=== PATIENT | female | born 1980 | race Hispanic/Latino ===

== ENCOUNTER 2018-03-18 12:40 | Outpatient (CLI) | payer OTHER | END 2018-03-18 12:41 | disposition home or self-care (01) | LOC: RAD 12:40 ==

== ENCOUNTER 2018-04-09 13:48 | Outpatient (CLI) | payer OTHER | END 2018-04-09 13:49 | disposition home or self-care (01) | LOC: LAB 13:48 ==

== ENCOUNTER 2018-05-09 04:06 | Emergency (ER) | payer OTHER ==
[2018-05-09 04:14] VITALS: BMI 33.2
[2018-05-09 04:38] VITALS: RESP 18; O2SAT 96
[2018-05-09] MEDS ORDERED: Sodium Chloride 0.9% 1,000 ML IV SCH (04:45)
--- NOTE | 2018-05-09 04:53 | ED PDOC ---
Arrival/HPI - General Chief Complaint: Flu-like Symptoms Time Seen by Provider: 05/09/18 04:19 Historian: Patient - History of Present Illness Narrative History of Present Illness (Text): 05/09/18 04:43 38 F with Past medical history of sepsis presents with cc of cold, body aches, and cough w/ green sputum x4 days. Patient reports that she has a history of sepsis due to strep and pneumonia. Patient mentions that she have trouble breathing while she is laying flat. Patient secondarily complains of intermittent headache, nausea and a fever while she was at home but which has since resolved since arrival to emergency department. Patient denies any chills, dizziness, chest pain, shortness of breath, dyspnea on exertion, diaphoresis, abdominal pain, vomiting, diarrhea, back pain, neck pain, or any other co mplaint. 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 Clotting Disorder - Integumentary Hx Psoriasis: Yes - Musculoskeletal/Rheumatological Hx Falls: No - Psychiatric Hx Substance Use: No - Surgical History Hx Section: Yes Hx Hysterectomy: Yes Other/Comment: ovarian cyst. ivc filter, - Anesthesia Hx Anesthesia: Yes Hx Anesthesia Reactions: No Family/Social History - Physician Review Nursing Documentation Reviewed: Yes Smoking Status: Light Smoker < 10 Cigarettes Daily Hx Alcohol Use: No Hx Substance Use: No Allergies/Home Meds Allergies/Adverse Reactions: Allergies No Known Allergies Allergy (Verified 07/25/12 10:19) Home Medications: Home Meds Medication Instructions Recorded Confirmed Apixaban [Eliquis] 1 tab PO BID 05/09/18 05/09/18 Atorvastatin [Lipitor] 1 tab PO DAILY 05/09/18 05/09/18 Cholecalciferol [Vitamin D 1000 IU] 5,000 iu PO QWK 05/09/18 05/09/18 Folic Acid 1 mg PO DAILY 05/09/18 05/09/18 Ixekizumab [Taltz Autoinjector] 80 mg SC Q30D 05/09/18 05/09/18 Review of Systems - Physician Review All systems were reviewed & negative as marked: Yes - Review of Systems Constitutional: Fevers (prior to arrival) Eyes: Normal Respiratory: Cough, Sputum (green) Cardiovascular: Normal Gastrointestinal: Nausea. absent: Diarrhea, Vomiting Genitourinary Female: Normal Musculoskeletal: Other (body aches) Skin: Normal Neurological: Headache Endocrine: Normal Hemo/Lymphatic: Normal Psychiatric: Normal Physical Exam - Physical Exam Narrative Physical Exam (Text): 05/09/18 04:57 Gen: VS reviewed, alert, well developed, well nourished, nontoxic, mild distress. ENT: normal pharynx. Eye: EOMI, PERRL. Neck: no JVD, supple, no adenopathy. CV: Rapid heart rate, no rubs, no murmur, no gallops, S1, S2, pulses equal and strong. Pulm: no distress, clear to auscultation, no wheeze, no rhonchi, breath sounds equal, no rales. Abd: soft, nontender, no guarding, no rebound, no rigidity, normal bowel sounds. Ext: no edema. Skin: good color, no rash, no cyanosis. Psych: responds appropriately to questions, normal affect. Neuro: oriented x 3, CN2-12 intact grossly, motor intact, sensation intact. Vital Signs Temp Pulse Resp BP Pulse Ox 05/09/18 04:24 98.7 F 107 H 18 124/88 96 Medical Decision Making ED Course and Treatment: 05/09/18 05:43 patient seen for cough, fever, body aches, symptoms typical for flu with a positive flu test. will tx with tamiflu. patient is nontoxic and stable for dc - RAD Interpretation Narrative RAD Interpretations (Text): 05/09/18 05:54 cxr my read: no focal infiltrate, no ptx, no pleural effusion Architectural Technologist: ED Physician - EKG Interpretation EKG Interpretation (Text): 05/09/18 05:38: sinus tach at 101 bpm, nml qrs, nml axis, no acute sttw abn Interpreted by ED Physician: Yes - Medication Orders Current Medication Orders: Acetaminophen (Tylenol 325mg Tab) 975 mg PO STAT STA Stop: 05/09/18 04:42 Sodium Chloride (Sodium Chloride 0.9%) 1,000 mls @ 150 mls/hr IV .[id number] NIESHA - PA / CAPACITOR INSPECTOR / Resident Statement MD/DO has reviewed & agrees with the documentation as recorded. - Scribe Statement The provider has reviewed the documentation as recorded by the Brown Burton All medical record entries made by the Brown were at my direction and personally dictated by me. I have reviewed the chart and agree that the record accurately reflects my personal performance of the history, physical exam, medical decision making, and the department course for this patient. I have also personally directed, reviewed, and agree with the discharge instructions and disposition. Disposition/Present on Arrival - Present on Arrival Any Indicators Present on Arrival: No History of DVT/PE: No History of Uncontrolled Diabetes: No Urinary Catheter: No History of Decub. Ulcer: No History Surgical Site Infection Following: None - Disposition Have Diagnosis and Disposition been Completed?: Yes Diagnosis: Influenza A Disposition: HOME/ ROUTINE Disposition Time: 05:44 Patient Plan: Discharge Patient Problems: Current Active Problems Problem Status Onset Influenza A Acute Condition: STABLE Discharge Instructions (ExitCare): Flu, Adult (DC) Additional Instructions: stay well hydrated. return for any new or worsening symptoms. Prescriptions: Oseltamivir Phosphate [Tamiflu] 75 mg PO BID 5 Days #9 capsule Referrals: Dong Pereira MD [Primary Care Provider] - Follow up with primary Forms: [facility] (Turkish), WORK NOTE
[2018-05-09 05:10] LABS: EOS % 0.4 % (1.5-5.0); HEMOGLOBIN 14.2 g/dL (12.0-16.0); LYMPH # 0.5 (1.2-3.4); LYMPH % 10.3 % (22.0-35.0); MEAN CELL VOLUME 89.2 fl (80.0-105.0); MEAN CORPUSCULAR HEMOGLOBIN 30.6 pg (25.0-35.0); MEAN CORPUSCULAR HGB CONC 34.3 g/dl (31.0-37.0); MEAN PLATELET VOLUME 9.9 fl (7.0-11.0); MONO # 0.4 (0.1-0.6); RBC 4.64 10^6/uL (3.5-6.1); RED CELL DISTRIBUTION WIDTH 13.1 % (11.5-14.5); WHITE BLOOD COUNT 4.8 10^3/uL (4.5-11.0)
[2018-05-09 05:22] LABS: URINE BILIRUBIN NEGATIVE (NEGATIVE); URINE BLOOD SMALL (NEGATIVE); URINE GLUCOSE (UA) NEGATIVE (NEGATIVE); URINE LEUKOCYTE ESTERASE NEGATIVE Leu/uL (NEGATIVE); URINE PROTEIN NEGATIVE mg/dL (<30 mg/dL); URINE UROBILINOGEN 0.2 E.U./dL (<1 E.U./dL)
[2018-05-09 05:28] LABS: VENOUS BLOOD GAS PO2 45 mm/Hg (30-55)
[2018-05-09 05:33] LABS: URINE APPEARANCE CLEAR (CLEAR); URINE COLOR YELLOW (YELLOW)
[2018-05-09 05:36] LABS: URINE BACTERIA FEW /hpf; URINE WBC 0 - 2 /hpf (0-6)
[2018-05-09 06:07] VITALS: BP 108/66; PULSE 98; TEMP 98.3
[2018-05-09 06:48] LABS: ALB/GLOB RATIO 1.4 (1.1-1.8); ALBUMIN 4.4 g/dL (3.0-4.8); ALT/SGPT 105 U/L (7-56); AST/SGOT 103 U/L (14-36); BLOOD UREA NITROGEN 7 mg/dL (7-21); CALCIUM 9.3 mg/dL (8.4-10.5); GFR NON-AFRICAN AMERICAN > 60
--- NOTE | 2018-05-09 09:19 | RAD ---
Date of service: 05/09/2018 HISTORY: cough COMPARISON: No prior. TECHNIQUE: Chest PA and lateral FINDINGS: LUNGS: No active pulmonary disease. PLEURA: No significant pleural effusion identified. No pneumothorax apparent. CARDIOVASCULAR: No aortic atherosclerotic calcification present. Normal cardiac size. No pulmonary vascular congestion. OSSEOUS STRUCTURES: No significant abnormalities. VISUALIZED UPPER ABDOMEN: Normal. OTHER FINDINGS: None. IMPRESSION: No active disease.
--- NOTE | 2018-05-09 22:50 | CARD ---
APPROVED REPORT Date of service: 05/09/2018 EKG Measurement Heart [id number] TN [id number] [id number] <Conclusion> Sinus tachycardia Otherwise normal ECG
== END 2018-05-09 06:10 | disposition home or self-care (01) ==
LOC: ED 04:06
DX: J10.1 Influenza due to other identified influenza virus with other respiratory manifestations (principal); F17.210 Nicotine dependence, cigarettes, uncomplicated; Z86.711 Personal history of pulmonary embolism
CPT/HCPCS: 71046; 80053; 81001; 81025; 82803; 84145; 85025; 87040; 87804; 93005; 99284; J7030

== ENCOUNTER 2018-06-21 11:16 | Outpatient (CLI) | payer OTHER | END 2018-06-21 11:17 | disposition home or self-care (01) | LOC: LAB 11:16 ==